=== PATIENT | female | born 1995 | race Caucasian/White ===

== ENCOUNTER 2018-05-12 12:58 | Observation (INO) | payer BC, OTHER ==
[2018-05-12] MEDS ORDERED: NS 1,000 ML IV ONE (13:06)
--- NOTE | 2018-05-12 13:17 | EDPHY ---
HPI/HX/ROS/PE/MDM Narrative: CHIEF COMPLAINT: Abdominal pain, nausea, vomiting HPI: This patient is a healthy 23 year old female. She presents today with abdominal pain, nausea, and vomiting which began around 5:30am today. Initially, she felt a "bubbly" sensation in her stomach and then began vomiting. This has persisted and she notes generalized abdominal pain as well. She endorses diarrhea, no hematochezia. She denies eating any unusual foods. No recent international travel. She endorses heavy alcohol use on Saturday night and states she has had similar symptoms in the past associated with alcohol use. She denies any history of abdominal surgeries. She denies dysuria, hematuria. No recent antibiotic use. No recent known ill contacts. No fever, shortness of breath, lightheadedness, or other associated symptoms. REVIEW OF SYSTEMS: Aside from elements discussed in the HPI, a comprehensive 10-point review of systems was reviewed and is negative. PMH: Hymenectomy. SOCIAL HISTORY: Student at [employer]. Lives in [place]. Does not abuse tobacco, drugs, or alcohol. PHYSICAL EXAM: General:Patient is alert, in no acute distress. ENT:Eyes are normal to inspection. ENT inspection normal. Neck: Normal inspection. Full range of motion. Respiratory:No respiratory distress. Breath sounds normal bilaterally. Cardiovascular: Regular rate and rhythm. Strong peripheral pulses. Normal cap refill. Abdomen: Mild diffuse abdominal tenderness, with moderate to severe tenderness in the RLQ. There are no peritoneal signs. There are normal bowel sounds. Back: Normal to inspection. No tenderness to palpation. Skin: Normal color. No rash. Warm and dry. Extremities: Normal appearance. Full range of motion. Neuro: Oriented x3. Normal motor function. Normal sensory function. ED Course: 23 y/o female presents with abdominal pain, vomiting, and diarrhea onset this morning around 5:30am. On exam, she has mild diffuse abdominal tenderness with moderate to severe tenderness in the right lower quadrant. IV established. Plan for labs including CBC, chemistries, UA, BHCG. Plan to administer 4mg IV Zofran , 30mg IV Toradol, 1L IV NS for symptom relief. Plan for CT abdomen/pelvis for further evaluation. Reviewed laboratory studies. WBC elevated at 15,000. 15:[address] Kennedy, radiologist. CT shows evidence of appendicitis. Plan to consult with general surgeon front office secretary. 15:30 Reassessed patient. Discussed imaging results and plan to consult with general surgery. General surgeon front office secretary notified. 16:25 Dr. Dc, general surgeon, has evaluated the patient. Plan to admit for perioperative management of acute appendicitis. Dr. Dc accepts admission. - Data Points Imaging Results: Imaging Impressions Abdomen CT 05/12/18 14:07 Impression: 1. Acute, possibly ruptured appendicitis. 2. Borderline splenomegaly. 3. Additional findings as above. Findings discussed with Kip Abdi MD 05/12/2018 at 15:26. Imaging: Discussed imaging studies w/ call or contact centre operator Radiologist, I viewed and interpreted images myself Laboratory Results: Laboratory Results 05/12/18 13:20 05/12/18 05/12/18 05/12/18 13:20 13:20 13:20 Sodium 139 mEq/L mEq/L (135-145) Potassium 3.6 mEq/L mEq/L (3.3-5.0) Chloride 101 mEq/L mEq/L (97-110) Carbon Dioxide 20 mEq/l L mEq/l (22-31) Anion Gap 18 mEq/L H mEq/L (6-14) BUN 14 mg/dL mg/dL (7-23) Creatinine 0.7 mg/dL mg/dL (0.6-1.0) Estimated GFR > 60 Glucose 141 mg/dL H mg/dL (70-100) Calcium 10.4 mg/dL mg/dL (8.5-10.4) Beta HCG, Qual NEGATIVE Urine Color YELLOW Urine Appearance HAZY Urine pH 7.0 (5.0-7.5) Ur Specific [place] 1.029 (1.002-1.030) Urine Protein 1+ H (NEGATIVE) Urine Ketones 1+ H (NEGATIVE) Urine Blood NEGATIVE (NEGATIVE) Urine Nitrate NEGATIVE (NEGATIVE) Urine Bilirubin NEGATIVE (NEGATIVE) Urine Urobilinogen NEGATIVE EU EU (0.2-1.0) Ur Leukocyte Esterase NEGATIVE (NEGATIVE) Urine RBC 1-3 /hpf /hpf (0-3) Urine WBC 1-3 /hpf /hpf (0-3) Ur Epithelial Cells TRACE /lpf /lpf (NONE-1+) Urine Mucus 1+ /lpf /lpf (NONE-1+) Urine Glucose NEGATIVE (NEGATIVE) Medications Given: Discontinued Medications Sodium Chloride (Ns) 1,000 mls @ 0 mls/hr IV EDNOW ONE; Wide Open PRN Reason: Protocol Stop: 05/12/18 13:07 Last Admin: 05/12/18 13:36 Dose: 1,000 mls Ketorolac Tromethamine (Toradol) 15 mg IVP EDNOW ONE Stop: 05/12/18 13:31 Last Admin: 05/12/18 13:36 Dose: 15 mg Ketorolac Tromethamine (Toradol) 15 mg IVP EDNOW ONE Stop: 05/12/18 15:56 Last Admin: 05/12/18 15:58 Dose: 15 mg Ondansetron HCl (Zofran) 4 mg IVP EDNOW ONE Stop: 05/12/18 13:31 Last Admin: 05/12/18 13:37 Dose: 4 mg General Time Seen by Provider: 05/12/18 13:06 Initial Vital Signs: Initial Vital Signs Temperature (C) 36.7 C 05/12/18 13:00 Heart Rate 89 05/12/18 13:00 Respiratory Rate 18 05/12/18 13:00 Blood Pressure 116/68 05/12/18 13:00 O2 Sat (%) 100 05/12/18 13:00 O2 Delivery Mode Room Air Allergies/Adverse Reactions: No Known Allergies Allergy (Verified 05/12/18 13:00) Home Medications: Medication Instructions Recorded Escitalopram Oxalate [Lexapro] 5 mg PO HS 01/13/15 Departure - Departure Disposition: [facility] Inpatient Acute Clinical Impression: Appendicitis Qualifiers: Appendicitis type: acute appendicitis Acute appendicitis type: unspecified acute appendicitis type Qualified Code(s): K35.80 - Unspecified acute appendicitis Condition: Fair Report Scribed for: Kip Abdi Report Scribed by: Delmis Jane Date of Report: 05/12/18 Time of Report: 13:17 Physician Review and Approval Statement: Portions of this note were transcribed by an ED scribe. I personally performed the history, physical exam, and medical decision making; and confirm the accuracy of the information in the transcribed note.
[2018-05-12] MEDS ORDERED: KETOROLAC 30 MG/1 ML SDV IVP ONE ×2 (13:30→15:55)
[2018-05-12] MEDS ORDERED: ONDANSETRON 4 MG/2 ML VIAL IVP ONE (13:30)
[2018-05-12 13:53] LABS: PLATELET COUNT 296 10^3/uL (150-400)
[2018-05-12] MEDS ORDERED: IOPAMIDOL (ISOVUE-300) 100 ML BTL ONE (14:27)
[2018-05-12] MEDS ORDERED: LIDOCAINE 1% 300 MG/30 ML SDV ONE (16:28)
[2018-05-12] MEDS ORDERED: BUPIVACAINE 0.5% 30 ML SDV ONE (16:28)
--- NOTE | 2018-05-12 16:42 | PDCONSULT ---
Urban Sociologist Note: Chief complaint: Right lower quadrant abdominal pain History of present illness: This is a 23-year-old woman who presents with 24 hr history of malaise nausea and vomiting generalized abdominal pain that has now localized to the right lower quadrant. She denies fever chills. She has not had any diarrhea. She does report having these types of symptoms 1 year ago and 9 months ago which resolved after several hours. This pain seems to be slightly different and more persistent. Past medical history: Depression Past surgical history: Hymenectomy Medications: Lexapro 5 mg daily Allergies no known drug allergies Family history: Heart disease on her mother's side but no immediate family members or first-degree relatives. Social history: Alcohol use on the weekends, marijuana. Review of systems: Significant for abdominal pain all others are reviewed and are negative Temp Pulse Resp BP Pulse Ox 36.6 C 60 14 103/62 98 05/12/18 16:00 05/12/18 16:00 05/12/18 16:00 05/12/18 16:00 05/12/18 16:00 Alert oriented no distress Sclerae anicteric, EOMI. Oropharynx moist no lesions, teeth in good repair Trachea midline no JVD thyromegaly or cervical adenopathy Regular rate and rhythm Clear to auscultation bilaterally Abdomen soft tender in the right lower quadrant with rebound. No hepatosplenomegaly Extremities without edema Skin normal turgor and tone Affect normal Neurologic exam nonfocal 05/12/18 Unknown 05/12/18 13:[address] scan personally reviewed on [facility] PACS system. Agree with findings of acute appendicitis no signs of rupture by my evaluation. Abdomen CT 05/12/18 14:07 Impression: 1. Acute, possibly ruptured appendicitis. 2. Borderline splenomegaly. 3. Additional findings as above. Findings discussed with Kip Abdi MD 05/12/2018 at 15:26. Impression: Acute appendicitis with leukocytosis of 15,000. Plan: Laparoscopic appendectomy. The risks benefits and alternatives to surgery have been outlined clearly to the patient with risk of intra-abdominal injury from a postoperative abscess and need for further intervention. Options for antibiotic care have been reviewed with the patient and she has consented to proceed with surgery. Written consent has been obtained after verbalized confirmation of understanding. Plan on 1 g of Invanz prior to surgery discharged in the morning.
[2018-05-12] MEDS ORDERED: ERTAPENEM 1 GM in NS 100 ML IV ONE (16:44)
[2018-05-12] MEDS ORDERED: LR 1,000 ML IV ONE (16:47)
[2018-05-12] MEDS ORDERED: HYDROCODONE/APAP 5/325 TAB PO PRN (17:09)
[2018-05-12] MEDS ORDERED: METOCLOPRAMIDE 10 MG/2 ML VIAL IVP PRN (17:09)
[2018-05-12] MEDS ORDERED: ONDANSETRON 4 MG/2 ML VIAL IVP PRN (17:09)
[2018-05-12] MEDS ORDERED: TEMAZEPAM 15 MG CAP PO PRN (17:09)
--- NOTE | 2018-05-12 17:11 | POSTOPPROG ---
Post Op Note Date of Operation: 05/12/18 Surgeon: Abner Dc Anesthesiologist: Lonnie Anesthesia: GET(General Endotracheal) Pre-op Diagnosis: Acute appendicitis Post-op Diagnosis: same Procedure: Lap Appy Findings: Acute appendicitis Inf/Abcess present in the surg proc area at time of surgery?: Yes Depth: Organ Space EBL: Minimal Specimen(s): Appendix
[2018-05-12] MEDS ORDERED: MIDAZOLAM 2 MG/2 ML VIAL ONE (17:17)
[2018-05-12] MEDS ORDERED: MIDAZOLAM 2 MG/2 ML VIAL IVP ONE (17:18)
--- NOTE | 2018-05-12 17:18 | PDANEPAE ---
ANE Past Medical History - Pulmonary History Hx Oxygen in Use at Home: No Hx Sleep Apnea: No - Endocrine History Hx Diabetes: No ANE Review of Systems Review of Systems: ANE Patient History - Allergies Allergies/Adverse Reactions: No Known Allergies Allergy (Verified 05/12/18 13:00) - Home Medications Home Medications: Escitalopram Oxalate [Lexapro] 5 mg PO HS 01/13/15 [Last Taken 05/11/18] - NPO status NPO Since - Liquids (Date): 05/12/18 NPO Since - Liquids (Time): 12:00 NPO Since - Solids (Date): 05/11/18 NPO Since - Solids (Time): 20:00 - Smoking Hx Smoking Status: Never smoked ANE Labs/Vital Signs - Labs Result Diagrams: 05/12/18 Unknown 05/12/18 13:20 - Vital Signs Blood Pressure: 104/57 Heart Rate: 60 Respiratory Rate: 20 O2 Sat (%): 97 Height: 170.18 cm Weight: 54.431 kg ANE Physical Exam - Airway Neck exam: FROM Mallampati Score: Class 2 Mouth exam: normal dental/mouth exam - Pulmonary Pulmonary: no respiratory distress - Cardiovascular Cardiovascular: regular rate and rhythym - ASA Status ASA Status: II, E ANE Anesthesia Plan Anesthesia Plan: general endotracheal anesthesia
[2018-05-12] MEDS ORDERED: fentaNYL 250 MCG/5 ML INJ ONE (17:20)
[2018-05-12] MEDS ORDERED: PROPOFOL 200 MG/20 ML VIAL ONE (17:20)
[2018-05-12] MEDS ORDERED: ROCURONIUM 50 MG/5 ML VIAL ONE (17:21)
[2018-05-12] MEDS ORDERED: LIDOCAINE 2% 100 MG/5 ML SYR ONE (17:21)
[2018-05-12] MEDS ORDERED: DEXAMETHASONE 4 MG/ML VIAL ONE ×3 (17:21)
[2018-05-12] MEDS ORDERED: KETOROLAC 30 MG/1 ML SDV ONE (17:21)
[2018-05-12] MEDS ORDERED: METOCLOPRAMIDE 10 MG/2 ML VIAL ONE (17:21)
[2018-05-12] MEDS ORDERED: NALOXONE HCL 0.4 MG/ML INJ IVP PRN (17:51)
[2018-05-12] MEDS ORDERED: fentaNYL 100 MCG/2 ML INJ IVP PRN (17:51)
[2018-05-12] MEDS ORDERED: ALBUTEROL 3 ML DEYVIAL IH PRN (17:51)
[2018-05-12] MEDS ORDERED: GLYCOPYRROLATE 0.2 MG/1 ML VIAL ONE ×2 (17:54)
[2018-05-12] MEDS ORDERED: NEOSTIGMINE METHYLSULFATE 5 MG/5 ML SYR ONE (17:54)
--- NOTE | 2018-05-12 18:17 | POSTANESTH ---
Post Anesthetic Evaluation Cardiovascular Status: Similar to Pre-Op Cond Respiratory Status: Similar to Pre-op Cond. Level of Consciousness/Mental Status: Mildly Sleepy, Arousable Pain Control: Adequate, Prn Tx Ordered Nausea/Vomiting Control: Adequate, Prn Tx Ordered Complications Possibly Related to Anesthesia: None Noted
--- NOTE | 2018-05-12 18:42 | GOP ---
DATE OF OPERATION: SURGEON: Abner Dc MD ANESTHESIA: General endotracheal anesthesia was used. ANESTHESIOLOGIST: Dr. Fleming. PREOPERATIVE DIAGNOSIS: Acute appendicitis. POSTOPERATIVE DIAGNOSIS: Acute appendicitis. PROCEDURE PERFORMED: Laparoscopic appendectomy FINDINGS: SPECIMENS: Appendix to permanent pathology. INDICATIONS: This is a 23-year-old woman who presents to the hospital with acute appendicitis, confi rmed by CT scan consistent with her clinical picture, leukocytosis of 15,000. She was given Invanz p reoperatively, brought to the operating room for elective appendectomy. DESCRIPTION OF PROCEDURE: The patient was brought into the operating room. After induction of endot elyssa anesthesia in supine position, her abdomen was prepped with chlorhexidine, draped sterilely. Time-out procedure was performed according to institutional standards. Local anesthetic was infused in the skin and subcutaneous tissues of the trocar site and supraumbilic al trocar placement was done in an open fashion. The abdomen was insufflated to 15 TOR with carbon d ioxide. Working trocars were placed in lower midline under direct visualization. The appendix was brought in the field of dissection. The mesentery was controlled with bipolar LigaS ure energy and the appendix was then transected at the base flush with the cecum using an Endo-LUCIO st apler. After confirmation of hemostasis and no other pathology, the appendix was brought out through the umbilical incision within the trocar to prevent infection. The abdomen was inspected. There is no need for irrigation. The working trocars were removed. The abdomen was deflated. Fascia was closed using 0 Vicryl. All 3 ports were then reapproximated using 4-0 Monocryl. Dermabond was applied. The patient was awakened, extubated. She was taken to the rec overy room in stable condition. Needle, instrument, and sponge counts were verified to be correct x2 . /[id number]/MODL
[2018-05-12] MEDS: KETOROLAC 15 MG/1 ML SDV IVP SCH (19:37)
[2018-05-12] MEDS ORDERED: CEPACOL LOZENGE PO PRN (21:38)
[2018-05-13] MEDS: KETOROLAC 15 MG/1 ML SDV IVP SCH ×2 (00:03→05:48)
[2018-05-13 07:40] VITALS: BP 91/54
--- NOTE | 2018-05-13 13:08 | PDDCSUM ---
Discharge Summary Discharge Summary: 23-year-old with admitted for acute appendicitis under observation. Principal procedure laparoscopic appendectomy No complications of hospital stay. Back to baseline cardiopulmonary status Medications on discharger Escitalopram Oxalate [Lexapro 10 MG] 5 mg PO HS 01/13/15 [Last Taken 05/11/18] Hydrocodone/APAP 5/325 [[place] 5/325 (*)] 1 - 2 tab PO Q4HRS PRN #20 tab [Last Taken Unknown] Regular rate and rhythm Clear to auscultation Abdomen soft no peritonitis nondistended Incisional tenderness as expected. No signs of infection No peripheral edema Patient is instructed to call with any concerns regarding her hospitalization or surgery such as but not limited to bleeding from incisions, signs of infection, temperature greater than 101.5, inability to eat or recurrence of symptoms. Patient verbalized understanding and will follow up in the office in 1-2 weeks. ED Provider: Kip Abdi Status: Z Complete Time Seen by Provider: 05/12/18 13:06 Condition: Good Triaged At: 05/12/18 13:00 Emergency Discharge Date/Time: 05/12/18 16:41 Emergency Discharge Disposition: [facility] Inpatient Acute Clinical Impression Appendicitis Emergency Discharge Comment: Admit Intervention Last Done Discharge Assessment-ED 05/12/18 16:27 Query Result Associated Mechanism of Injury/Trauma No Machine Repairer Services Used During Patient No 's Visit Disposition [facility] Admission/Transfer [facility] Admit/Transfer Destination OR - then 3W Pt Evaluated By Admitting MD Yes Recent History of MDRO/Clostridium No Difficile Mentation at Admission AAOx3 Calm Medications Reviewed During Report Yes Name of Last Pain Medication Given Toradol Psychosocial issues None Identified Report Called to Floor 16:28 Nurses Name/Number Receiving Report Angelic Time Report Called/Texted to Receiving 16:28 Nurse Further Questions Contact Sandi Transferring Department Phone Number [email or web address] Discharged Method Stretcher IV Hydration/Medications Infusing at No Discharge Observation Discharge Date/Time: 05/13/18 11:07 Observation Discharge Disposition: Home, Routine, Self-Care Observation Discharge Comment: Instructions: [facility] Provider or Procedure Specific Instructions Hydrocodone/Acetaminophen (By mouth) Prescriptions: Hydrocodone/APAP 5/325 [[place] 5/325 (*)] Abner Dc
== END 2018-05-13 11:07 | disposition home or self-care (01) ==
LOC: F3E 18:43
PROVIDERS: ADMIT Surgery; ATTEND Surgery
PROC: 0DTJ4ZZ Resection of Appendix, Percutaneous Endoscopic Approach (ICD-10-PCS; principal; 2018-05-12 17:15)
DX: K35.30 Acute appendicitis with localized peritonitis, without perforation or gangrene (principal)
CPT/HCPCS: 44970; 74177; 96361; 96374; 96375; 96376; 99285; G0378; J1100; J1335; J1885; J2001; J2250; J2405; J2704; J2710; J2765; J3010; Q9967